=== PATIENT | male | born 1980 | race Caucasian/White ===

== ENCOUNTER 2020-09-30 12:41 | Emergency (ER) | payer BC, OTHER ==
[~2020-09-30] VITALS: Ht 188 cm; Wt 90.0 kg
[2020-09-30 13:12] VITALS: BP 133/62
[2020-09-30] MEDS ORDERED: ONDANSETRON 2MG/ML, 2ML ONE (13:59)
[2020-09-30] MEDS ORDERED: PLEASE ENTER HEIGHT AND WEIGHT MC SCH (14:00)
[2020-09-30] MEDS ORDERED: MORPHINE SULFATE 4 MG/ML, 1ML ONE ×2 (14:00→17:14)
[2020-09-30] MEDS ORDERED: SODIUM CHLORIDE FLUSH 10ML SYR IVF ONE (14:00)
[2020-09-30] MEDS ORDERED: ONDANSETRON 2MG/ML, 2ML IVPush ONE (14:00)
[2020-09-30] MEDS ORDERED: MORPHINE SULFATE 4 MG/ML, 1ML IVPush PRN (14:00)
--- NOTE | 2020-09-30 14:21 | NUR ---
iv started pain meds given. xray done. pt states some relief
[2020-09-30] MEDS ORDERED: HYDROmorphone 1 MG/ML, 1ML INJ ONE ×2 (14:37→15:26)
[2020-09-30] MEDS ORDERED: HYDROmorphone 2 MG/ML, 1ML IVPush PRN ×2 (15:00→16:30)
--- NOTE | 2020-09-30 15:35 | NUR ---
pt remains in pain- states numbness to fingers in left arm
[2020-09-30 16:20] LABS: BASOPHILS % (AUTO) 0 % (0-1); EOSINOPHILS % (AUTO) 0 % (1-7); LYMPHOCYTES % (AUTO) 8 % (22-44); MEAN CORPUSCULAR HGB CONC 34.6 g/dL (33.2-36.2); MONOCYTES % (AUTO) 5 % (2-9); NEUTROPHILS % (AUTO) 87 % (42-75); PLATELET COUNT 186 x10^3/uL (130-400); RED BLOOD COUNT 5.26 x10^6/uL (4.38-5.82); RED CELL DISTRIBUTION WIDTH 13.6 % (9.4-14.8)
[2020-09-30] MEDS ORDERED: HYDROmorphone 1 MG/ML, 1ML INJ IV PRN (16:30)
[2020-09-30] MEDS ORDERED: BUTALB/APAP/CAFFEINE 50MG/325MG/40MG PO PRN (16:30)
[2020-09-30] MEDS ORDERED: hydrALAzine 20 MG/ML, 1ML IVPush PRN (16:30)
[2020-09-30] MEDS ORDERED: ACETAMINOPHEN 325 MG TABLET PO PRN (16:30)
[2020-09-30] MEDS ORDERED: ONDANSETRON 2MG/ML, 2ML IVPush PRN (16:30)
[2020-09-30] MEDS ORDERED: SODIUM CHLORIDE 0.9% 1,000 ML IV SCH (16:30)
[2020-09-30] MEDS ORDERED: HYDROcodone/APAP 5/325 TABLET PO PRN (16:30)
[2020-09-30 16:41] LABS: ALBUMIN 4.3 g/dL (3.4-5.0); ANION GAP 4 mmol/L (5-15); CALCIUM 8.9 mg/dL (8.5-10.1); CHLORIDE 109 mmol/L (98-107); CREATININE 1.14 mg/dL (0.7-1.3)
[2020-09-30 16:46] LABS: MD SCAN
[2020-09-30 16:51] LABS: INTERNATIONAL NORMALIZED RATIO 1.08 (0.93-1.1); PROTHROMBIN TIME 11.4 Seconds (9.6-11.5)
--- NOTE | 2020-09-30 18:24 | NUR ---
returned from ct scan
[2020-09-30] MEDS ORDERED: IBUPROFEN 600 MG TABLET ONE (18:51)
[2020-09-30] MEDS ORDERED: OXYcodone/APAP 5/325MG TABLET ONE (18:51)
[2020-09-30] MEDS ORDERED: OXYcodone/APAP 5/325MG TABLET PO ONE (19:00)
[2020-09-30] MEDS ORDERED: IBUPROFEN 600 MG TABLET PO ONE (19:00)
== END 2020-09-30 19:52 | disposition home or self-care (01) ==
LOC: ED 15:01 → UNDOADMOB 16:54 → EDIP 16:54 → ED 19:52
DX: S52.572A Other intraarticular fracture of lower end of left radius, initial encounter for closed fracture (principal); Z20.822 Contact with and (suspected) exposure to COVID-19; X58.XXXA Exposure to other specified factors, initial encounter; Y93.89 Activity, other specified; Y92.89 Other specified places as the place of occurrence of the external cause; Y99.8 Other external cause status
CPT/HCPCS: 29105; 36415; 71045; 73090; 73200; 80048; 82040; 85025; 85610; 85730; 87635; 96374; 96375; 96376; 99285; J1170; J2270; J2405; 29125